=== PATIENT | female | born 1980 | race Caucasian/White ===

== ENCOUNTER 2024-10-08 14:22 | Outpatient (CLI) | payer OTHER, SELFPAY ==
[2024-10-08 14:54] LABS: Hematocrit 42.0 % (37.0-47.0); Hemoglobin 13.7 g/dL (12.0-15.0); Mean Corpuscular HGB Conc 32.6 g/dl (32-36); Mean Corpuscular Hemoglobin 30.1 pg (26-34); Mean Corpuscular Volume 92.3 fl (80-100); Platelet Count Result 277 k/mm3 (150-375); Red Blood Count 4.55 M/mm3 (4.2-5.4); White Blood Count 8.0 K/mm3 (4.5-10.0)
[2024-10-08 15:11] LABS: Albumin Level 4.1 g/dL (3.5-5.1); Anion Gap 7 mmol/L (4-12); Blood Urea Nitrogen 10 mg/dL (7-17); Calcium 8.9 mg/dL (8.4-10.2); Carbon Dioxide 27 mmol/L (22-30); Chloride 105 mmol/L (98-107); Estimated Glomerular Filt Rate > 60; Glucose 81 mg/dL (65-110); Potassium 4.4 mmol/L (3.4-5.0); Sodium 139 mmol/L (137-145)
[2024-10-08 15:19] LABS: Prealbumin 22.5 mg/dL (17.6-36.0)
[2024-10-08 15:24] LABS: Iron 83 ug/dL (37-170)
[2024-10-08 21:58] LABS: Hemoglobin A1C 5.0 % (<5.7)
== END 2024-10-08 14:23 | disposition home or self-care (01) ==
LOC: ANHLAB 14:30
PROVIDERS: PCP Family Medicine; Visit Provider Surgery Plastic and Reconstructive Surgery
DX: R63.4 Abnormal weight loss (principal)
CPT/HCPCS: 36415; 80048; 82040; 83036; 83540; 84134; 85027

== ENCOUNTER 2024-10-15 00:06 | Day surgery (SDC) | payer OTHER, SELFPAY ==
[2024-10-09 09:46] VITALS: BMI 30.2
--- NOTE | 2024-10-09 09:54 | PC.NURSE ---
Report to the Outpatient Waiting Room, entrance under the green pavilion located off [facility], at time _0930_ on date _[id number]_. Planned Procedure Time: _1130_.? Time changes happen often and if your time is changed the preop area will call you the afternoon before. - You and your visitor will be asked to self-screen and do not enter if you have any COVID symptoms. Please call surgeon if you need to reschedule. - A mask is optional within the hospital at this time. Patients may have clear liquids (water, carbonated beverages, clear teas, apple juice) until 3 hours prior to surgery with a maximum of 20 ounces. - No food from midnight until time of surgery and no smoking, or chewing tobacco (or any form of nicotine). No chewing gum, candy or mints. Take only the following medications with a SIP of water on the morning of surgery: ___Levothyroxine____ DO NOT STOP ANY OF YOUR OTHER PRESCRIPTION MEDICATIONS PRIOR TO SURGERY EXCEPT THE FOLLOWING Hold all vitamins and supplements for 3 days per anesthesiologist. Medications to discontinue per physician Date to take last dose Please no make-up, nail kittitian, hairspray, perfume, deodorant, or body powder the day of surgery.? No jewelry (including any body piercings) or valuables the day of surgery, leave them at home.? Please take a shower or bath the night before, or the morning of, surgery with an antibacterial soap.? Wear comfortable, loose fitting clothing.? - Jewelry must be removed prior to entering the operating room.? Rings and piercings that are not removed may be cut off. - The hospital will not accept responsibility for valuables.? - Please leave all valuables, including medications, at home the day of surgery. If you are going home after surgery, a licensed six horse hitch driver must drive you home.? - NO public transportation without another adult if you receive anesthesia. - We recommend that an adult stay with you for 24 hours following discharge. - We also recommend that you do not drive, make important decision, drink alcoholic beverages, or take any drugs that were not prescribed by your health care provider for at least 24 hours after your discharge time. Follow any additional instructions given to you from your surgeon. Telephone instructions given to __Mirella___and asked if any additional questions and then verbalized understanding. Patient advised to call surgeon office or pre surgery nurse liaison [phone] if any additional questions.
[2024-10-15] VITALS (10 sets, daily range): BP systolic 95–125; BP diastolic 65–82; PULSE 57–72; RESP 12–18; TEMP 36.8–37.4; O2SAT 95–100; BMI 30.3
--- OUTSIDE RECORDS SUMMARY | 2024-10-15 00:09 | XMS_ITS | Encounter Summary ---
Author Organization [facility] Facility Care Team Providers Care Artistic Director Name Role Phone Jesus Thornton MD Primary Care Provider [phone] Jesus Thornton MD Primary Care Provider [phone] Henna Gomez MD Unavailable Glenn Bailey MD Unavailable [phone] Shar Emerson MD Unavailable [phone] Encounter Details Date Type Department Care Team (Latest Contact Info) Description 12/23/2015 Orders Only [facility] ProviderDebbie MD [address] [place] [id number] Social History Tobacco Use Types Packs/Day Years Used Date Smoking Tobacco: Never Assessed Alcohol Use Standard Drinks/Week Comments No 0 (1 standard drink = 0.6 oz pur e alcohol) Comments Unknown Sex and Gender Information Value Date Recorded Sex Assigned at Not on file 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 us Historical Provider Final Res ult documented in this encounter Visit Diagnoses Not on filedocumented in this encounter Care Teams Artistic Director Relationship Specialty Start Date End Date Jesus Thornton MD [address] [facility] [address] [place] [address] PCP - General 06/22/16 Jesus Thornton MD [address] [facility] [address] [place] [address] PCP - General 01/17/15 06/21/16 [place] [address] [facility] [address] [place] [address] Rheumatology 12/25/16 06/03/23 Glenn Bailey MD [address] [place] [address] Consulting Physician Rheumatology 08/28/23 Shar Emerson MD [address] [place] [address] Referring Physician Plastic Surgery 10/07/24 documented as of this encounter
--- OUTSIDE RECORDS SUMMARY | 2024-10-15 00:09 | XMS_ITS | Encounter Summary ---
Author Organization [facility] Address [address] [place] [address] Care Team Providers Care Youth Accommodation Support Worker Name Role Phone Jesus Thornton MD Primary Care Provider [phone] Glenn Bailey MD Unavailable [phone] [facility] Unavailable [phone] Encounter Details Date Type Department Care Team (Late st Contact Info) Description 01/03/2024 Orders Only [facility] Information Management [address] [place] [address] Marylin Martines CNM [address] [place] [id number] Social History Tobacco Use Types Packs/Day Years Used Date Smoking Tobacco: Former Cigarettes Smokeless Tobacco: Never Alcohol Use Standard Drinks/Week Comments Yes 0 (1 standard drink = 0.6 oz pur e alcohol) Comments No Sex and Gender Information Value Date Recorded Sex Assigned at Not on file 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 Gender Identity Not on file Sexual Orientation Not on file documented as of this encounter Plan of Treatment Not on file documented as of this encounter Procedures Procedure Name Priority Date/Time Associated Diagnosis Comments SCAN - RADIOLOGY/IMAGING 01/03/2024 documented in this encounter Results * SCAN - RADIOLOGY/IMAGING (01/03/2024) Anatomical Region Laterality Modality Other us Marylin Martines CNM Final Result documented in this encounter Visit Diagnoses Not on filedocumented in this encounter Care Teams Youth Accommodation Support Worker Relationship Specialty Start Date End Date Jesus Thornton MD [address] [facility] [address] [place] [address] PCP - General 06/22/16 Glenn Bailey MD [address] [place] [address] Consulting Physician Rheumatology 08/28/23 Shar Emerson MD [address] [place] [address] Referring Physician Plastic Surgery 10/07/24 documented as of this encounter
--- OUTSIDE RECORDS SUMMARY | 2024-10-15 00:09 | XMS_ITS | Referral Summary ---
Author Organization [facility] [address] Address [address] [place] [phone] Phone Care Team Providers Care Records Associate Name Role Phone Jesus Thornton MD Primary Care Provider [phone] Glenn Bailey MD Unavailable [phone] Unavailable [phone] Encounters Date Type Department Care Team Description 10/07/2024 Telephone [facility] [address] [place] [phone] Daniel Franco 09/24/2024 Results Follow-Up [facility] [address] [place] [phone] Rochelle Francis PA Erythrocyte sedimentation rate, CBC with auto differential, CRP (acute phase), Comprehensive metabolic panel 09/23/2024 Telephone [facility] [address] [place] [phone] Rochelle Francis PA 09/23/2024 1:00 PM CDT Office Visit [facility] [address] [place] [phone] Rochelle Francis PA Psoriatic arthritis (HCC) (Primary Dx); Encounter for long-term (current) use of medications from Last 3 Months Allergies Active Allergy Reactions Criticality Noted Date Comments House Dust Mold Pollen Extracts Unknown 09/15/2018 Medications levothyroxine (SYNTHROID) 50 mcg tablet take 1 tablet (50MCG) by oral route every day 0 2 Active loratadine (CLARITIN) 10 mg tablet take 1 tablet (10MG) by oral route every day 0 2 Active montelukast (SINGULAIR) 10 mg tablet take 1 tablet by oral route every day in the evening 0 0 5 Active cycloSPORINE (RESTASIS) 0.05 % ophthalmic emulsion instill 1 drop by ophthalmic route every 12 hours into affected eye(s) 0 each 0 6 Active albuterol HFA (PROVENTIL HFA,VENTOLIN HFA,PROAIR HFA) 90 mcg/actuation inhaler INHALE 2 PUFFS EVERY 4-6 HOURS IF NEEDED 1 Active sulfaSALAzine EN (AZULFIDINE EN) 500 mg EC tablet Take 3 tablets (1,500 mg total) by mouth 2 (two) times a day 540 tablet 1 4 Active adalimumab-adb m 40 mg/0.4 mL pen injector kit GIVE ONE INJECTION (40MG) SUBCUTANEOUSLY ONCE EVERY 2 WEEKS. 2 kit 2 5 Active ibuprofen (ADVIL,MOTRIN) 600 mg tablet Take 1 tablet (600 mg total) by mouth 3 (three) times a day as needed for pain 60 tablet 5 025 Active Active Problems Problem Noted Date Diagnosed Date Encounter for long-term (current) use of medicat ions 09/12/2023 Assessment & Plan (09/23/2024 8:21 AM CDT): Quant gold neg 05/2023 Hep b and c neg 08/2023 Hand US 08/2023 Assessment & Plan (05/22/2024 8:38 AM PROVIDER SERVICE REPRESENTATIVE): Quant gold neg 05/2023 Hep b and c neg 08/2023 Hand US 08/2023 Assessment & Plan (01/17/2024 8:27 AM CDT): Quant gold neg 05/2023 Hep b and c neg 08/2023 Hand US 08/2023 Assessment & Plan (09/12/2023 8:03 AM CDT): Quant gold neg 05/2023 Hep b and c neg 08/2023 Hand US 08/2023 Arthralgia 08/28/2023 Assessment & Plan (09/12/2023 7:58 AM CDT): Long hx of PsA but also has hx of + RF. Her symptoms appear more compatible with her previous PsA diagnosis. She is currently on humira but takes it q3 weeks instead of 2 weeks, recommended that she takes her humria sq q 2 weeks since she has a low mod cdai today. Also takes ssz 1000mg bid in summer and 1500mg bid in winter, we can continue this. Check labs (avise panel done 09/2022 only had a + RF) but no need to repeat avise panel. Check hand US and xrays. Seen with Dr. Bailey. 1 h spent with pt today between Dr. Bailey and myself. F/u in 2 weeks to re-evaluate. Assessment & Plan (08/28/2023 12:55 PM CDT): Long hx of PsA but also has hx of + RF. Her symptoms appear more compatible with her previous PsA diagnosis. She is currently on humira but takes it q3 weeks instead of 2 weeks, recommended that she takes her humria sq q 2 weeks since she has a low mod cdai today. Also takes ssz 1000mg bid in summer and 1500mg bid in winter, we can continue this. Check labs (avise panel done 09/2022 only had a + RF) but no need to repeat avise panel. Check hand US and xrays. Seen with Dr. Bailey. 1 h spent with pt today between Dr. Bailey and myself. F/u in 2 weeks to re-evaluate. Dorsalgia 08/28/2023 Assessment & Plan (08/28/2023 12:55 PM CDT): Check lumbar and si joint xrays. COVID-19 04/03/2021 Psoriatic arthritis 03/29/2017 Overview (09/03/2023): rf 14+ spouse had vasectomy scalp psoriasis cma14 and quant gold neg 03/30/16 US left hand/wrist 09/03/23: Effusion of the 4th extensor compartment Mild synovial thickening of the dorsal wrist with single power Doppler signal Moderate synovial thickening of the 3rd PIPJ Moderate spurring of the 1st CMC joint Findings are compared to previous exam dated 06/07/17 showing continued extensor tendon effusion. Stable synovial thickening with improvement in power Doppler and effusion of the dorsal wrist. Increased synovial thickening of the 3rd PIPJ. Assessment & Plan (09/23/2024 3:03 PM CDT): Images from the original note were not included. Low CDAI. Is now on biosimilar adalimumab and it is working well but her insurance told pt that they will cover brand name Humira only. Will change to humira. She is tolerating ssz 3 tabs bid without any gi upset although she occ forgets to take it or does not want to take it, states she is tired of taking so many meds. Will continue both meds. Check labs today. She takes occ ibuprofen, has a rx that needs refill from another provider, is requesting we take over this. Only takes it 1-2 times a week at most. No gi problems when she takes it, will refill it. Long hx of PsA but also has hx of + RF. Her symptoms appear more compatible with her previous PsA diagnosis although she has a + RF so the possibility of also having RA should still be considered. With her subtle bilat si joint narrowing and psoriasis will continue her diagnosis of psoriatic arthritis. Her flu vaccine is utd. Advised her to get shingrix, prevnar and pneumovax and covid vaccines. Labs and imaging: Avise panel 08/2022----RF 38 Hep B and C neg Crp 4.5/ESR 19 CBC/CMP wnl Quant godl neg 05/2023 Lt Hand US 08/2023: Assessment & Plan (05/22/2024 2:11 PM PROVIDER SERVICE REPRESENTATIVE): Images from the original note were not included. Low CDAI. Is now on biosimilar adalimumab and it is working well. She is tolerating ssz 3 tabs bid without any gi upset. Will continue both meds. Check labs today Long hx of PsA but also has hx of + RF. Her symptoms appear more compatible with her previous PsA diagnosis although she has a + RF so the possibility of also having RA should still be considered. With her subtle bilat si joint narrowing and psoriasis will continue her diagnosis of psoriatic arthritis. Her flu vaccine is utd. Advised her to get shingrix, prevnar and pneumovax and covid vaccines. Labs and imaging: Avise panel 08/2022----RF 38 Hep B and C neg Crp 4.5/ESR 19 CBC/CMP wnl Quant godl neg 05/2023 Lt Hand US 08/2023: Assessment & Plan (01/17/2024 1:37 PM CDT): Images from the original note were not included. Low-mod CDAI but she is overdue for her humira, she ran out and changed insurance and now we have to get this approved first. Gave pt a sample of humira and will start approval. Refilled her ssz 3 tabs bid. Check labs today Long hx of PsA but also has hx of + RF. Her symptoms appear more compatible with her previous PsA diagnosis although she has a + RF so the possibility of also having RA should still be considered. With her subtle bilat si joint narrowing and psoriasis will continue her diagnosis of psoriatic arthritis. Her flu vaccine is utd. Advised her to get shingrix, prevnar and pneumovax and covid vaccines. Labs and imaging: Avise panel 08/2022----RF 38 Hep B and C neg Crp 4.5/ESR 19 CBC/CMP wnl Quant godl neg 05/2023 Lt Hand US 08/2023: Assessment & Plan (09/12/2023 12:03 PM CDT): Images from the original note were not included. Low CDAI. Long hx of PsA but also has hx of + RF. Her symptoms appear more compatible with her previous PsA diagnosis although she has a + RF so the possibility of also having RA should still be considered. With her subtle bilat si joint narrowing and psoriasis will continue her diagnosis of psoriatic arthritis. Her hand US did not show a lot of active inflammation but she was strongly advised to take her humira q 2 weeks to prevent future joint damage.. She can continue ssz 1000mg bid in summer and 1500mg bid in winter since she feels better in the summer. Seen with Dr. Bailey. 1 h spent with pt today between Dr. Bailey and myself. Labs and imaging: Avise panel 08/2022----RF 38 Hep B and C neg Crp 4.5/ESR 19 CBC/CMP wnl Quant godl neg 05/2023 Lt Hand US 08/2023: Assessment & Plan (08/28/2023 12:55 PM CDT): Long hx of PsA but also has hx of + RF. Her symptoms appear more compatible with her previous PsA diagnosis. She is currently on humira but takes it q3 weeks instead of 2 weeks, recommended that she takes her humria sq q 2 weeks since she has a low mod cdai today. Also takes ssz 1000mg bid in summer and 1500mg bid in winter, we can continue this. Check labs (avise panel done 09/2022 only had a + RF) but no need to repeat avise panel. Check hand US and xrays. Seen with Dr. Bailey. 1 h spent with pt today between Dr. Bailey and myself. F/u in 2 weeks to re-evaluat Assessment & Plan (11/01/2017 11:29 AM CDT): Patient disease activity is low on ssz and humira. She had a flare in August. Reports 1/10 joint pain today and minimal AM stiffness. Patient is to continue current regimen. Gave her samples of pennsaid, Vivlodex, and Duexis today. She will try them and let us know if these help w/ her thumb pain and occasional flares. She was instructed not to take both Vivlodex and Duexis Will check routine labs today. Follow up in 3 mo, sooner if needed Assessment & Plan (07/26/2017 12:16 PM CDT): Patient disease activity is low on 2 tabs BID SSZ and humira every other week. She reports her joints feel good and she has minimal pain and stiffness. Minimal clinical evidence of swelling on exam. Her hand/wrist us in 05/2017 which showed mild synovial thickening/effusion w/ PD. There is worsening doppler act compared to her previous us in 04/2016. Patient is to continue current regimen. Her clinical exam is not consistent w/ the findings on her us. Her current 21 day dietary restriction may be playing a part in helping manage her disease. We will hold off on making any changes at this point in time. Will check routine labs today. Follow up in 3 mo, sooner if needed. Pt seen w/ Dr. Gomez Assessment & Plan (03/29/2017 9:28 AM PROVIDER SERVICE REPRESENTATIVE): Patient on Humira and SSZ. Patient disease activity is low. Patient is to continue Humira and SSZ. Ok to decrease SSZ to 2 tabs BID as she is low disease activity. Will repeat u/s prior to next Ov. If she continues to have minimal findings on U/S will have her stop the SSZ. Will check routine labs today (checking lupus follow up panel as she did have a positive anti-C1q). Encounter for gynecological examination without abnormal finding 03/29/2017 Overview (10/31/2017): 1) Hep b/c NR 04/10 2) Quant gold negative 04/11 Assessment & Plan (10/31/2017 8:24 PM CDT): Will continue to monitor w/ routine labs 1) Hep b/c NR 04/10 2) Quant gold negative 04/11 Assessment & Plan (07/26/2017 12:17 PM CDT): Will continue to monitor the patient with routine labs. Assessment & Plan (03/29/2017 9:28 AM PROVIDER SERVICE REPRESENTATIVE): Will continue to monitor the patient with routine labs. Rash 12/21/2016 Assessment & Plan (03/29/2017 9:32 AM PROVIDER SERVICE REPRESENTATIVE): Malar blushing. AVISE testing with anti-C1q. Suspicion for lupus nephritis is low but will check urine for protein/creatinine ratio. Psoriasis 09/07/2016 Assessment & Plan (07/26/2017 12:17 PM CDT): Stable. Asthma 01/03/2015 Overview (06/28/2016): Asthma Urinary tract infection 08/19/2014 Bronchial asthma 02/10/2014 History of gestational diabetes mellitus (GDM) 1 04/11/2013 Obesity affecting , antepartum 02/10/20 14 Hyperthyroidism 02/09/2014 Leiomyoma of uterus, unspecified 02/09/2014 High-risk 11/14/2011 Resolved Problems Problem Noted Date Diagnosed Date Resolved Date Encounter for long-term (cur rent) use of other medications 09/07/2016 03/29/2017 Social History Tobacco Use Types Packs/Day Years Used Date Smoking Tobacco: Former Cigarettes Smokeless Tobacco: Never Tobacco Cessation:Counseling Given: Not Answered Alcohol Use Standard Drinks/Week Comments Yes 0 (1 standard drink = 0.6 oz pur e alcohol) Comments No Sex and Gender Information Value Date Recorded Sex Assigned at Not on file Legal Sex Female 1:45 AM PROVIDER SERVICE REPRESENTATIVE Gender Identity Not on file Sexual Orientation Not on file Last Filed Vital Signs Vital Sign Reading Time Taken Comments Blood Pressure 110/66 09/23/2024 1:03 PM CDT Pulse 71 09/23/2024 1:03 PM CDT Temperature 37.1 C (98.7 F) 04/03/2021 2:08 PM PROVIDER SERVICE REPRESENTATIVE Respiratory Rate 20 04/03/2021 2:08 PM PROVIDER SERVICE REPRESENTATIVE Oxygen Saturation 98% 09/23/2024 1:03 PM CDT Inhaled Oxygen Concentration - - Weight 78.9 kg (174 lb) 09/23/2024 1:03 PM CDT Height 160 cm (5' 3) 09/23/2024 1:03 PM CDT Body Mass Index 30.82 09/23/2024 1:03 PM CDT Plan of Treatment Not on file Procedures Procedure Name Priority Date/Time Associated Diagnosis Comments COMPREHENSIVE METABOLIC PANEL Routine 09/23/2024 1:41 PM CDT Psoriatic arthritis (HCC) Encounter for long-term (current) use of medications CRP (ACUTE PHASE) Routine 09/23/2024 1:4 1 PM CDT Psoriatic arthritis (HCC) Encounter for long-term (current) use of medications CBC WITH AUTO DIFFERENTIAL Routine 09/23/2024 1:41 PM CDT Psoriatic arthritis (HCC) Encounter for long-term (current) use of medications ERYTHROCYTE SEDIMENTATION RATE Routine 09/23/2024 1:41 PM CDT Psoriatic arthritis (HCC) Encounter for long-term (current) use of medications PAP AND HIGH RISK HPV, REFLEX TO GENOTYPING Routine 08/30/2021 9:11 AM CDT Well woman exam with routine gynecological exam SCREENING MAMMOGRAM BILATERAL W MISAEL Routine 12/24/2017 8:32 AM CDT from Last 3 Months or Most Recently Relevant to Health Maintenance Results * (ABNORMAL) CBC with auto differential (09/23/2024 1:41 PM CDT) WBC 6.9 3.8 - 10.8 Thousand/u L [facility] RBC, POC 4.49 3.80 - 5.10 Million/uL [facility] Hgb 13.4 11.7 - 15.5 g/dL [facility] Hct 42.4 35.0 - 45.0 % [facility] MCV 94.4 80.0 - 100.0 fL [facility] MCH 29.8 27.0 - 33.0 pg [facility] MCHC 31.6(L) 32.0 - 36.0 g/dL [facility] Comment: For adults, a slight decrease in the calculated MCHC value (in the range of 30 to 32 g/dL) is most likely not clinically significant; however, it should be interpreted with caution in correlation with other red cell parameters and the patient's clinical condition. Rdw 13.1 11.0 - 15.0 % [facility] Platelets 240 140 - 400 Thousand/u L [facility] MPV 10.1 7.5 - 12.5 fL [facility] Neutrophils, abs 3,816 1,500 - 7,800 cells/uL [facility] Lymphocytes, abs 2,415 850 - 3,900 cells/uL [facility] Monocyte abs 559 200 - 950 cells/uL [facility] Eosinophils, abs 83 15 - 500 cells/uL [facility] Basophils, abs 28 0 - 200 cells/uL [facility] Neutrophils 55.3 % [facility] Lymphocyte pct 35.0 % [facility] Monocytes 8.1 % [facility] Eosinophils 1.2 % [facility] Basophils 0.4 % [facility] Blood 09/23/2024 1:41 PM CDT 09/23/2024 1:42 PM CDT Rochelle AGUILERA LAB BLOOD ORDERAB LES Final Result Performing Organization Address [facility] Co de Phone Number [facility] [address] [place] [address] * Erythrocyte sedimentation rate (09/23/2024 1:41 PM CDT) Pathologist [facility] Erythrocyte sedimentation rate 6 < OR = 20 mm/h [facility] Blood 09/23/2024 1:41 PM CDT 09/23/2024 1:42 PM CDT Rochelle AGUILERA LAB BLOOD ORDERAB LES Final Result Performing Organization Address [facility] de Phone Number [facility] [address] [place] [address] * CRP (acute phase) (09/23/2024 1:41 PM CDT) C-RP <3.0 <8.0 mg/L [facility] Blood 09/23/2024 1:41 PM CDT 09/23/2024 1:42 PM CDT Rochelle AGUILERA LAB BLOOD ORDERAB LES Final Result Performing Organization Address [facility] Co de Phone Number [facility] [address] [place] [address] * Comprehensive metabolic panel (09/23/2024 1:41 PM CDT) Glucose 81 65 - 99 mg/dL [facility] Comment: Fasting reference interval BUN 14 7 - 25 mg/dL [facility] Creatinine 0.66 0.50 - 0.99 mg/dL [facility] eGFR 112 > OR = 60 mL/min/1.7 3m2 [facility] BUN/creat ratio SEE NOTE: 6 - 22 (calc) [facility] Comment: Not Reported: BUN and Creatinine are within reference range. Sodium 139 135 - 146 mmol/L [facility] Potassium, pl 4.2 3.5 - 5.3 mmol/L [facility] Chloride 102 98 - 110 mmol/L [facility] CO2 28 20 - 32 mmol/L [facility] Calcium 9.3 8.6 - 10.2 mg/dL [facility] Protein, sr 7.2 6.1 - 8.1 g/dL [facility] Albumin 4.3 3.6 - 5.1 g/dL [facility] GLOBULIN 2.9 1.9 - 3.7 g/dL (calc) [facility] Alb/glob ratio 1.5 1.0 - 2.5 (calc) [facility] Bilirubin, total 1.0 0.2 - 1.2 mg/dL [facility] Alk phos 46 31 - 125 U/L [facility] AST 13 10 - 30 U/L [facility] ALT (SGPT) 9 6 - 29 U/L [facility] Blood 09/23/2024 1:41 PM CDT 09/23/2024 1:42 PM CDT us Rochelle AGUILERA LAB BLOOD ORDERAB LES Final Result [facility] [address] [place] [address] * Pap and High Risk HPV, reflex to Genotyping (08/30/2021 9:11 AM CDT) Thin prep (Pap test) 08/30/2021 9:11 AM CDT 09/01/2021 9:11 AM CDT Narrative PATHOLOGY [facility] - 09/05/2021 10:41 AM CDT Department of Pathology [address] [place] [address] Final Report with Addendum Note to Patients: This report may contain a detailed description of human tissue sent by a health care provider to the laboratory for pathologic evaluation. The content of this report is essential for diagnosis and may provide important critical findings. This information may be unfamiliar to patients to review without a medical professional present. It is advised that the patient review this report in the presence of a health care provider who can answer questions and explain the details. Patient Name: GARRY BOUDRAEUX Address: [address] [place] [address] Gender: F : 1980 (Age: 40) Service: Laboratory Location: [facility] #: [id number] Patient Type: [facility] SPECIMEN Taken: 08/30/2021 Received: 09/01/2021 Accessioned:: 09/04/2021 Reported: 09/05/2021 Physician(s): Pily Ingram [facility] Diagnosis: Source of Specimen: SCREENING THIN PREP IMAGED PAP w/ HPV Specimen Adequacy: - Satisfactory for evaluation; endocervical/transformation zone component present General Category: - Negative for intraepithelial lesion or malignancy MARCIN Puente(ASCP) Report Electronically Reviewed and Signed Out By MARCIN Puente(ASCP) 09/05/2021 10:41:54Addenda: HPV Test Interpretation NEGATIVE for types 16, 18, 31, 33, 35, 39, 45, 51, 52, 56, 58, 59, 66 and 68. Test performed utilizing Gen-Probe Aptima assay. MARCIN Mackenzie(ASCP)Report Electronically Reviewed and Signed Out By MARCIN Mackenzie(ASCP) 09/04/2021 13:47:47 Specimen(s) Received: A: SCREENING THIN PREP IMAGED PAP w/ HPV Clinical History: Last Menstrual Period: 08/05/21 The Pap test is a screening test used to aid in the detection of cervical cancer and its precursors. It should not be the sole means by which malignant and premalignant lesions are diagnosed. Both false negative and false positive results may occur. It also has poor sensitivity for the detection of endometrial lesions and should not be used to evaluate suspected endometrial abnormalities. For these reasons it is most important to obtain Pap tests at regular intervals. The performance characteristics of some immunohistochemical stains, fluorescence in-situ hybridization tests and immunophenotyping by flow cytometry cited in this report (if any) were determined by the Surgical Pathology Department at as part of an ongoing quality associate program and in compliance with federally mandated regulations drawn from the Clinical Laboratory Improvement Act of 1988 (CLIA '88). Some of these tests rely on the use of analyte specific reagents and are subject to specific labeling requirements by the US Food and Drug Administration. Such diagnostic tests may only be performed in a facility that is certified by the Department of Health and Human Services as a high complexity laboratory under CLIA '88. The FDA has determined that such clearance or approval is not necessary. This test is used for clinical purposes. It should not be regarded as investigational or for research. Nevertheless, federal rules concerning the medical use of analyte specific reagents require that the following disclaimer be attached to the report: This test was developed and its performance characteristics determined by the Surgical Pathology Department [facility]. It has not been cleared or approved by the U. S. Food and Drug Administration. Pily Ingram [facility] LAB CYTOLOGY ORDERABLES Final Result PATHOLOGY [facility] from Last 3 Months or Most Recently Relevant to [place] [address] [facility] [place] [employer] [facility] Care Teams Records Associate Relationship Specialty Start Date End Date Jesus Thornton MD [address] [facility] [address] [place] [address] PCP - General 06/22/16 Glenn Bailey MD [address] [place] [address] Consulting Physician Rheumatology 08/28/23 Shar Emerson MD [address] [place] [address] Referring Physician Plastic Surgery 10/07/24
--- OUTSIDE RECORDS SUMMARY | 2024-10-15 00:09 | XMS_ITS | Data Portability ---
Author Organization [facility] Address [address] [place] [address] Assessment No assessment recorded. Plan of Treatment Reminders Order Date Submit Date Provider Last Modified By Organization Details Last Modified Time Details Appointments PRODUCTION CONTROL EXPERT SONO 15 2024 11:00A M [facility] Not available Not available Not available PRODUCTION CONTROL EXPERT EST 2024 11:15A M Corrine Cervantes CNM Not available Not available Not available Lab None record ed. Referral None record ed. Procedures None record ed. Surgeries None record ed. Imaging None record ed. Medication Orders None record ed. Patient TargetsNo targets recorded. Patient InstructionsNo instructions recorded. Reason for Referral None Reported. Results Created Date Observation Date Name Description Value Unit Range Abnormal Flag Note LastModifiedBy Organization Detail LastModifiedTime 09/23/1909/22/2024 MAMMO , scree kwaku, tomos ynthe sis, bilat eral This is a summar y report . The comple te report is availa ble in the patien t's medica l record . If you cannot access the medica l record , please contac t the sendin g organi valentin for a detail ed fax or copy. [facility] [address] [address] Examin ation: Screen ing bilate ral mammog ethan Exam Date: 09/23/19 11:03 AM Access ion: [id number] Clinic al histor y: Routin e screen ing. Compar amber: 2023, 2022 Techni que: Digita l screen ing mammog minh of both breast s was perfor med. Breast tomosy nthesi s acquis itions were obtain ed and review ed. This study was read with the assist ance of a SincroPool er-aid ed detect ion system . Tissue densit y: There are scatte red areas of fibrog landul ar densit y. Findin gs: No suspic ious masses , malign ant appear ing calcif icatio ns, skin thicke kwaku or other abnorm alitie s are presen t. No signif icant change from the prior exam. IMPRES DUSTIN: No suspic ious mammog raphic findin gs. Recomm endati on: 1. Routin e Screen ing, Bilate ral Assess ment: ACR BI-RAD S 1 - NEGATI VE Ordere d By: HEVER RAMÍREZ Electr onical ly Signed By: David Rollins MD on 09/23/19 3:06 PM Interp reted By: David Rollins MD, 09/23/19 3:01 PM [email or web address], [address], 09/23/2024 21:42:33 Result Notes None recorded. Procedures Surgical History Date Name Laterality Status Provider Name and Address Organization Details Recorded Time Most Recent Mammogram completed Thalia Ramírez MD [address] [place], [address], [facility] Tao Sales IV 09/23/2024 21:42:26 Imaging Results None recorded. Procedure Notes None recorded. Medical Equipment None Reported. Allergies Allergen ID Allergen Name Allergen Category Reaction Reaction Severity Criticality Documentation Date Start Date Code Code System Note Provider Name and Address Organization Details Recorded Time 986156 house dust allergeni c extract environme nt,medica tion Not available Not available Not available 10/13/2024 43536 9 RxNorm Shanna Homar [place] CL[place] IV 12:33:50 879420 mold extract environme nt Not available Not available Not available 10/13/2024 02582 8 RxNorm Shanna Hom[place] IV 12:33:53 Medications Name Sig Start Date Stop Date Status Note LastModified by Organization Details LastModified Time sulfasalazi ne 500 mg tablet Take 3 tablets twice a day by oral route. active Not Available Not Available No t Available fluconazole 150 mg tablet TAKE ONE TABLET BY MOUTH FOR one DOSE now. REPEAT in 3 DAYS. 10/13 completed Not Available Not Available Not Available prednisone 20 mg tablet TAKE TWO TABLETS BY MOUTH EVERY DAY FOR 5 DAYS, THEN TAKE ONE TABLET EVERY DAY FOR 5 DAYS 10/13 completed Not Available Not Available Not Available levothyroxi ne 50 mcg tablet TAKE ONE TABLET BY MOUTH DAILY active Not Available Not Available No t Available montelukast 10 mg tablet TAKE ONE TABLET BY MOUTH DAILY active Not Available Not Available No t Available ibuprofen 600 mg tablet TAKE ONE TABLET BY MOUTH THREE TIMES DAILY NEEDED FOR PAIN active Not Available Not Available No t Available albuterol sulfate HFA 90 mcg/actuati on aerosol inhaler inhale 2 puffs BY MOUTH EVERY 4 TO 6 HOURS NEEDED active Not Available Not Available No t Available amoxicillin 875 mg-potassiu m clavulanate 125 mg tablet TAKE ONE TABLET BY MOUTH EVERY TWELVE HOURS 10/13 completed Not Available Not Available Not Available Humira 40 mg/0.8 mL subcutaneou s syringe kit Inject 0.8 mL every 2 weeks by subcutane ous route. active Not Available Not Available No t Available Restasis 0.05 % eye drops in a dropperette INSTILL ONE DROP into THE affected eye EVERY TWELVE HOURS active Not Available Not Available No t Available Vitals Date Recorded Body height Body mass index (BMI) Body weight Systolic And Diastolic Provider Name and Address Organization Details Last Updated DateTime 10/13/2024 160.02 cm 30.3 kg/m2 82069.3 g 102/68 mm[Hg] Shanna Graf Sh[employer] Guardian IV 10/13/2024 12:40:09 Social History Question Answer Notes LastModified by Organizat ion Details LastModified Time Tobacco Smoking Status Former Smoker Shanna Graf chantel, [employer] IV 10/13/2024 12:33:43 If You Are , What Was Your Level Of Alcohol Consumption Prior To ? None [email or web address] Information not available 10/13/2024 Are You Blind Or Do You Have Difficulty Seeing? No Information not available 10/13/2024 Are You Deaf Or Do You Have Serious Difficulty Hearing? No [email or web address] Information not available 10/13/2024 What Type Of Diet Are You Following? REGULAR Information not available 10/13/2024 What Is The Highest Grade Or Level Of School You Have Completed Or The Highest Degree You Have Received? [id number] [email or web address] Information not available 10/13/2024 When Did You Quit Smoking? 11-15yearssi ncelastmagui ette [email or web address] Information not available 10/13/2024 How Many Children Do You Have? 2 [email or web address] Information not available 10/13/2024 Are There Any Occupational Health Risks Where You Work? No [email or web address] Information not available 10/13/2024 What Is Your Relationship Status? [email or web address] Information not available 10/13/2024 Are You Sexually Active? Yes [email or web address] Information not available 10/13/2024 At What Age Did You Start Smoking Tobacco? 21 [email or web address] Information not available 10/13/2024 How Much Tobacco Do You Smoke? No [email or web address] Information not available 10/13/2024 How Many Years Have You Smoked Tobacco? 10 [email or web address] Information not available 10/13/2024 Sex: Unknown Functional Status Question Answer Note LastModified by Organizat ion Details LastModified Time Do you use any illicit or recreational drugs? No Information not available 10/13/2024 Do you or have you ever used any other forms of tobacco or nicotine? No [email or web address] Information not available 10/13/2024 What is your level of alcohol consumption? None [email or web address] Information not available 10/13/2024 Are you currently employed? Yes [email or web address] Information not available 10/13/2024 What is your exercise level? Occasional [email or web address] Information not available 10/13/2024 Mental Status None recorded. Family History Nothing Reported Notes:none Medical History Condition Response Hypothyroidism Y Autoimmune disease Y Asthma Y Osteoporosis Y Gynecological History Statement/Question Response Date of Last Colonoscopy Flow Moderate Date of LMP 10/08/2024 Most Recent Bone Density Frequency of Cycle (Q days) 21-60 Duration of Flow (days) 4-9 Most Recent Mammogram 09/22/2024 Current Control Method Partner Vas ectomy Age at Menarche 12 Obstetrics History GPAL:G 2 P 2 0 0 2 Type Value Full Term 2 Living 2 Total 2 Past Encounters Encounter ID Performer Location Encounter Start Date Encounter Closed Date Diagnosis/Indication Diagnosis SNOMED-CT Code Diagnosis ICD10 Code Diagnosis Note [id number] Thalia Ramírez MD [facility] [address] [place] [address] 10/13/2024 12:14:58 10/13/2024 14:43:23 Menometrorrhagia 089375615 N92.1 Discussed cycle fluctuatio ns which may be typical of perimenopa use, both in timing and in flowAdvise d that a work up may be done to identify any physical factors such as fibroids and polyps, and hormone levels may be done but may not be as helpful as they fluctuate widely in perimenopa use.Advise d that perimenop is characteri zed by changing, fluctuatin g cycles that correlate with fluctuatio ns in hormone levels.Adv ised to schedule ultrasound and lab. She wishes to hold off on labs for now as she just had labs done with PCP and rheumatolo gist, wants to see the results of those.Advi sed that exam may be done when she is not bleeding, she is unsure of last pap but thinks had one last yr Health Concerns Section Related Observation LastModified by Organization Detai ls LastModified Time None Recorded Concern Status LastModified by Organization Details LastModified Time None Recorded Advance Directives Directive None Recorded Payers Insurance Date Sequence Insurance Name Policy Number Policy Silveira Covered Member ID Silveira Member ID Guarantor Name 10/13/2024 1 [facility] Mirella Boudreaux [id number] Mirella Boudreaux 10/13/2024 1 [employer] Mirella Boudreaux [id number] Mirella Boudreaux Notes Date Note Type Note Provider Name and Address Organization Details Recorded Time 10/13/2024 text/html Mirella is a 43yr old here today for an annual well visit, however, she is currently bleeding so wishes to defer pelvic exam. She does want to address her problem of irregular periods.She is experiencing irregular periods for some time now, and that is bothersome to her. She reports that some cycles she will bleed twice a month, others, she will skipThe bleeding generally lasts 4 days, with heavy flows and cramps.She does not feel that she has menopausal symptoms, but has maybe noted a hot flash once or twice.She tried to address this with another business director provider, but felt dismissed. She wonders if this is typical of perimenopause.She does state a hx of fibroids noted in a prior , but no recent ultrasound Thalia Ramírez MD [address] [place], [address], [facility] 10/13/2024 14:43:13 OBGyn Episode Ob Episode Information Episode Created Date Number of Fetuses Patient Bloodtype Patient rh Status Prepregnancy Weight lbs Domestic Partner Domestic Partner Phone Father Name Automobile Painter Status 10/14/19 25 1 CLOSED Fetus Data First Name Last Name Admitted to NICU Weight (g) Sex Living Outcome Pediatric Complications Fetus ID Race Codes Race Delivery Type 4422.52 2 F Full Term [id number] Jim Calculation Initial Jim Date Initial Exam Date Initial Exam Provider Initial Ultrasound Date Last Menstrual Period Date Ultra Sound Weeks Gestation 0 Eighteen To Twenty Week Jim Update Ultra Sound Date Fundal Height At Umbil Quickening Date Ultra Sound Latest Weeks Gestation Final Jim Confirmed By Final Jim Confirmed Date Final Jim Date Ultra Sound Latest Days Gestation 0 0 Menstrual History Last Menstrual Date Menses Monthly On Bcp Conception Prior Menses Frequency Hcg Plus Date Menarche Onset Age Delivery Information Delivery Date Delivery Type Labor Anesthesia Weeks Gestation Incision Type Labor Labor Length Hrs Delivered By Post Complications Tubal Sterilization Discharge Date Comments 5 41 Discharge Information Feeding Method Contraceptive Method Maternal HG B and HCT Levels Ob Episode Information Episode Created Date Number of Fetuses Patient Bloodtype Patient rh Status Prepregnancy Weight lbs Domestic Partner Domestic Partner Phone Father Name Automobile Painter Status 10/14/19 25 1 CLOSED Fetus Data First Name Last Name Admitted to NICU Weight (g) Sex Living Outcome Pediatric Complications Fetus ID Race Codes Race Delivery Type 3345.24 1 M Full Term [id number] Jim Calculation Initial Jim Date Initial Exam Date Initial Exam Provider Initial Ultrasound Date Last Menstrual Period Date Ultra Sound Weeks Gestation 0 Eighteen To Twenty Week Jim Update Ultra Sound Date Fundal Height At Umbil Quickening Date Ultra Sound Latest Weeks Gestation Final Jim Confirmed By Final Jim Confirmed Date Final Jim Date Ultra Sound Latest Days Gestation 0 0 Menstrual History Last Menstrual Date Menses Monthly On Bcp Conception Prior Menses Frequency Hcg Plus Date Menarche Onset Age Delivery Information Delivery Date Delivery Type Labor Anesthesia Weeks Gestation Incision Type Labor Labor Length Hrs Delivered By Post Complications Tubal Sterilization Discharge Date Comments 3 41 Discharge Information Feeding Method Contraceptive Method Maternal HG B and HCT Levels
--- OUTSIDE RECORDS SUMMARY | 2024-10-15 00:09 | XMS_ITS | Encounter Summary ---
Author Organization [facility] Address [address] [place] [address] Phone Care Team Providers Care Benefits Advisor Name Role Phone Jesus Thornton MD Primary Care Provider [phone] Glenn Bailey MD Unavailable [phone] [facility] Un[facility] [phone] Encounter Details Date Type Department Care Team (Late st Contact Info) Description 09/24/2024 Results Follow-Up [facility] [address] [place] [address] Rochelle Francis PA [address] [place] [address] Erythrocyte sedimentation rate, CBC with auto differential, CRP (acute phase), Comprehensive metabolic panel Social History Tobacco Use Types Packs/Day Years Used Date Smoking Tobacco: Former Cigarettes Smokeless Tobacco: Never Alcohol Use Standard Drinks/Week Comments Yes 0 (1 standard drink = 0.6 oz pur e alcohol) Comments No Sex and Gender Information Value Date Recorded Sex Assigned at Not on file Legal Sex Female 1:45 AM BOX OFFICE MANAGER Gender Identity Not on file Sexual Orientation Not on file documented as of this encounter Miscellaneous Notes * Result Encounter Note - Rochelle Francis PA - 09/24/2024 3:32 PM CDT Labs stable. Call patient with results. documented in this encounter Plan of Treatment Not on file documented as of this encounter Visit Diagnoses Not on filedocumented in this encounter Care Teams Benefits Advisor Relationship Specialty Start Date End Date Jesus Thornton MD [address] [place] [address] PCP - General 06/22/16 Glenn Bailey MD [address] [place] [address] Consulting Physician Rheumatology 08/28/23 Shar Emerson MD [address] [place] [address] Referring Physician Plastic Surgery 10/07/24 documented as of this encounter
--- OUTSIDE RECORDS SUMMARY | 2024-10-15 00:09 | XMS_ITS | Clinical Summary ---
Author Organization [facility] [address] Address [address] [place] [address] Phone Care Team Providers Care Order Desk Clerk Name Role Phone Jesus Thornton MD Primary Care Provider [phone] Glenn Bailey MD Unavailable [phone] [facility] Unavailable [phone] Allergies Active Allergy Reactions Criticality Noted Date [...] (two) times a day 540 tablet 1 10/25/202 4 Active adalimumab-adb m 40 mg/0.4 mL [...] 08/2023 Assessment & Plan (05/22/2024 8:38 AM RN TELEPHONE TRIAGE): Quant gold neg 05/2023 Hep b and [...] 08/2023: Assessment & Plan (05/22/2024 2:11 PM RN TELEPHONE TRIAGE): Images from the original note were not [...] Gomez Assessment & Plan (03/29/2017 9:28 AM RN TELEPHONE TRIAGE): Patient on Humira and SSZ. Patient disease [...] labs. Assessment & Plan (03/29/2017 9:28 AM RN TELEPHONE TRIAGE): Will continue to monitor the patient with routine labs. Rash 12/21/2016 Assessment & Plan (03/29/2017 9:32 AM RN TELEPHONE TRIAGE): Malar blushing. AVISE testing with anti-C1q. Suspicion [...] rent) use of other medications 09/07/2016 03/29/2017 Encounters Date Type Department Care Team Description 10/07/2024 Telephone [facility] [address] [place] [address] Daniel Franco 09/24/2024 Results Follow-Up [facility] [address] [place] [address] Rochelle Francis PA Erythrocyte sedimentation rate, CBC with auto differential, CRP (acute phase), Comprehensive metabolic panel 09/23/2024 1:00 PM CDT Office Visit [facility] [address] [place] [address] Rochelle Francis PA Psoriatic arthritis (HCC) (Primary Dx); Encounter for long-term (current) use of medications 09/23/2024 Telephone [facility] [address] [place] [address] Rochelle Francis PA from Last 3 Months Surgical History Surgery Date Site/Laterality Comments OTHER SURGICAL HISTORY trimalleolar sx Medical History Medical History Date Comments Hx Other Medical 03/2011 ankle fracture/ surgery Adiposity Obesity Hx Other Medical 2011 fibroids Hx Other Medical 2005 Hypothyroidism, primary Hypothyroidism Asthma Seasonal allergies Family History * Patient is adopted Medical History Relation Name Comments Other mutations Neg Hx ADOPTED Social History Tobacco Use Types Packs/Day Years Used Date Smoking Tobacco: Former Cigarettes Smokeless Tobacco: Never Tobacco Cessation:Counseling Given: Not Answered Alcohol Use Standard Drinks/Week Comments Yes 0 (1 standard drink = 0.6 oz pur e alcohol) Comments No Sex and Gender Information Value Date Recorded Sex Assigned at Not on file Legal Sex Female 1:45 AM RN TELEPHONE TRIAGE Gender Identity Not on file Sexual Orientation Not on file Obstetrics History Para Term AB IAB SAB Ectopic Multiple Livin g Live Births 2 2 2 0 0 0 0 0 0 2 2 Date Outcome GA Total Labor Labor/2nd/3rd Weight Sex Type Anes PTL Erica A1 A5 Name Clin 013 Term Vag-Sp ont 015 Term Vag-Sp ont Comments Age of menarche [age]y/o First live 31 y/o Last Filed Vital Signs Vital Sign Reading Time Taken Comments Blood Pressure 110/66 09/23/2024 1:03 PM CDT Pulse 71 09/23/2024 1:03 PM CDT Temperature 37.1 C (98.7 F) 04/03/2021 2:08 PM RN TELEPHONE TRIAGE Respiratory Rate 20 04/03/2021 2:08 PM RN TELEPHONE TRIAGE Oxygen Saturation 98% 09/23/2024 1:03 PM CDT Inhaled Oxygen Concentration - - Weight 78.9 kg (174 lb) 09/23/2024 1:03 PM CDT Height 160 cm (5' 3) 09/23/2024 1:03 PM CDT Body Mass Index 30.82 09/23/2024 1:03 PM CDT Plan of Treatment Health Maintenance Due Date Last Done Comments Depression Screening 1980 Hepatitis C Screening 1980 DTaP/Tdap/Td Vaccine (1 - Tdap) 10/29/1991 Varicella Vaccines (1 of 2 - 13+ 2-dose series) 1993 Pneumococcal vaccine <65 (1 of 2 - PCV) 10/29/1999 HPV Vaccines (1 - 3-dose SCD M series) 10/29/2007 Cervical Cancer Screening 08/30/2022 08/30/2021 Regular Well Visit/Exam 18-64 10/02/2024, 09/19/2022, 08/30/2021, Additional history exists Influenza Vaccine (#1) 2024 Breast Cancer Screening-Mammogram 09/22/2025 09/22/2024, 09/22/2024, 01/03/2024, Additional history exists Hepatitis B Screening Completed 08/28/2023 Procedures Procedure Name Priority Date/Time Associated Diagnosis [...] with auto differential (09/23/2024 1:41 PM CDT) Pathologist [facility] WBC 6.9 3.8 - 10.8 Thousand/u L [...] ORDERAB LES Final Result Performing Organization Address [facility] Co de Phone Number [facility] [address] [place] [address] * Erythrocyte sedimentation rate (09/23/2024 1:41 PM CDT) Pathologist [facility] Erythrocyte sedimentation rate 6 < OR = 20 mm/h [facility] Blood 09/23/2024 1:41 PM CDT 09/23/2024 1:42 PM CDT Rochelle AGUILERA LAB BLOOD ORDERAB LES Final Result Performing Organization Address [facility] de Phone Number [facility] [address] [place] [address] * CRP (acute phase) (09/23/2024 1:41 PM CDT) Pathologist [facility] C-RP <3.0 <8.0 mg/L [facility] Blood 09/23/2024 1:41 PM CDT 09/23/2024 1:42 PM CDT Rochelle Brigette AGUILERA LAB BLOOD ORDERAB LES Final Result Performing Organization Address [facility] Co de Phone Number [facility] [address] [place] [address] * Comprehensive metabolic panel (09/23/2024 1:41 PM [...] LAB BLOOD ORDERAB LES Final Result [facility] [address] [place] [address] * Pap and High Risk HPV, reflex to Genotyping (08/30/2021 9:11 AM CDT) Thin prep (Pap test) 08/30/2021 9:11 AM CDT 09/01/2021 9:11 AM CDT Narrative PATHOLOGY [facility] - 09/05/2021 10:41 AM CDT [facility] Department of Pathology [address] [place] [address] Final Report with Addendum Note to Patients: [...] and explain the details. Patient Name: GARRY BOUDREAUX Address: [address] [place] [address] Gender: F : 1980 (Age: 40) Service: Laboratory Location: [facility] #: [id number] Patient Type: [facility] SPECIMEN Taken: 08/30/2021 Received: 09/01/2021 Accessioned:: 09/04/2021 Reported: 09/05/2021 Physician(s): Pily Ingram [facility] Diagnosis: Source of Specimen: SCREENING THIN PREP IMAGED PAP w/ HPV Specimen Adequacy: - Satisfactory for evaluation; endocervical/transformation zone component present General Category: - Negative for intraepithelial lesion or malignancy MARCIN Puente(ASCP) Report Electronically Reviewed and Signed Out By ANH PuenteASC) 09/05/2021 10:41:54Addenda: HPV Test Interpretation NEGATIVE for types 16, 18, 31, 33, 35, 39, 45, 51, 52, 56, 58, 59, 66 and 68. Test performed utilizing Gen-Probe Aptima assay. MARCIN Mackenzie(ASCP)Report Electronically Reviewed and Signed Out By ANH MackenzieASCP) 09/04/2021 13:47:47 Specimen(s) Received: A: SCREENING THIN [...] determined by the Surgical Pathology Department at [facility] as part of an ongoing quality assurance/r&d lab technician program and in compliance with federally mandated [...] characteristics determined by the Surgical Pathology Department [facility]. It has not been cleared or approved by the U. S. Food and Drug Administration. Pily Ingram [facility] LAB CYTOLOGY ORDERABLES Final Result PATHOLOGY [facility] from Last 3 Months or Most Recently Relevant to Health Maintenance Insurance [facility] ACCESS CHOICE Member Subscriber Plan / Payer (Ef fective 2023-Present) Name:Garry Boudreaux Relation to Subscriber:Spouse Name:KAJAL BOUDREAUX Date of :1983 Payer ID:[id number] (NAIC) Type: LILO Address: [facility] [id number] [place] [address] [facility] Hired [facility] [place] [address] Care Teams Order Desk Clerk Relationship Specialty Start Date End Date Jesus Thornton MD [address] [address] PCP - General 06/22/16 Glenn Bailey MD [address] [place] [address] Consulting Physician Rheumatology 08/28/23 Shar Emerson MD [address] [place] [address] Referring Physician Plastic Surgery 10/07/24
--- OUTSIDE RECORDS SUMMARY | 2024-10-15 00:09 | XMS_ITS | Encounter Summary ---
Author Organization [facility] Facility Care Team Providers Care Senior Quality Engineer Name Role Phone Jesus Thornton MD Primary Care Provider [phone] Jesus Thornton MD Primary Care Provider [phone] Henna Gomez MD Unavailable Glenn Bailey MD Unavailable [phone] Shar Emerson MD Unavailable [phone] Encounter Details Date Type Department Care Team (Latest Contact Info) Description 08/09/2015 Orders Only [facility] CLINCONV ProviderDebbie MD [address] [place] [address] Social History Tobacco Use Types Packs/Day Years Used Date Smoking Tobacco: Never Assessed Alcohol Use Standard Drinks/Week Comments No 0 (1 standard drink = 0.6 oz pur e alcohol) Comments Unknown Sex and Gender Information Value Date Recorded Sex Assigned at Not on file Legal Sex Female 1:45 AM HOSPITAL ACCOUNT MANAGER Gender Identity Not on file Sexual Orientation Not on file documented as of this encounter Plan of Treatment Not on file documented as of this encounter Procedures Procedure Name Priority Date/Time Associated Diagnosis Comments SCAN - LABS 11/01/2015 12:00 AM CDT documented in this encounter Results * SCAN - LABS (11/01/2015 12:00 AM CDT) Narrative 11/01/2015 12:00 AM CDT Ordered by an unspecified provider. us Historical Provider Final Res ult documented in this encounter Visit Diagnoses Not on filedocumented in this encounter Care Teams Senior Quality Engineer Relationship Specialty Start Date End Date Jesus Thornton MD [address] [facility] [address] [place] [address] PCP - General 06/22/16 Jesus Thornton MD [address] [facility] [address] [place] [address] PCP - General 01/17/15 06/21/16 [place] [address] [facility] [address] [place] [address] Rheumatology 12/25/16 06/03/23 Glenn Bailey MD [address] [place] [address] Consulting Physician Rheumatology 08/28/23 Shar Emerson MD [address] [place] [address] Referring Physician Plastic Surgery 10/07/24 documented as of this encounter
--- OUTSIDE RECORDS SUMMARY | 2024-10-15 00:09 | XMS_ITS | Encounter Summary ---
Author Organization [facility] Healthcare Address [address] [place] [address] Care Team Providers Care Telecommunications Field Technician Name Role Phone Jesus Thornton MD Primary Care Provider [phone] Glenn Bailey MD Unavailable [phone] Shar Emerson MD Unavailable [phone] Encounter Details Date Type Department Care Team (Late st Contact Info) Description 10/03/2023 Orders Only [facility] Information Management [address] [place] [address] Scanning, Provider Social History Tobacco Use Types Packs/Day Years Used Date Smoking Tobacco: Former Cigarettes Smokeless Tobacco: Never Alcohol Use Standard Drinks/Week Comments Yes 0 (1 standard drink = 0.6 oz pur e alcohol) Comments No Sex and Gender Information Value Date Recorded Sex Assigned at Not on file 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 Gender Identity Not on file Sexual Orientation Not on file documented as of this encounter Plan of Treatment Not on file documented as of this encounter Procedures Procedure Name Priority Date/Time Associated Diagnosis Comments SCAN - LABS 10/03/2023 documented in this encounter Results * SCAN - LABS (10/03/2023) us Provider Scanning Final Result documented in this encounter Visit Diagnoses Not on filedocumented in this encounter Care Teams Telecommunications Field Technician Relationship Specialty Start Date End Date Jesus Thornton MD [address] [address] PCP - General 06/22/16 Glenn Bailey MD [address] [place] [address] Consulting Physician Rheumatology 08/28/23 Shar Emerson MD [address] [place] [address] Referring Physician Plastic Surgery 10/07/24 documented as of this encounter
--- OUTSIDE RECORDS SUMMARY | 2024-10-15 00:09 | XMS_ITS | Encounter Summary ---
Author Organization [facility] Facility Care Team Providers Care Supervisor Machine Workers Name Role Phone Jesus Thornton MD Primary Care Provider [phone] Jesus Thornton MD Primary Care Provider [phone] Henna Gomez MD Unavailable Glenn Bailey MD Unavailable [phone] Shar Emerson MD Unavailable [phone] Encounter Details Date Type Department Care Team (Latest Contact Info) Description 02/09/2016 Orders Only [facility] CLINCONV ProviderDebbie MD [address] [place] [address] Social History Tobacco Use Types Packs/Day Years Used Date Smoking Tobacco: Never Assessed Alcohol Use Standard Drinks/Week Comments No 0 (1 standard drink = 0.6 oz pur e alcohol) Comments Unknown Sex and Gender Information Value Date Recorded Sex Assigned at Not on file 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 us Historical Provider Final Res ult documented in this encounter Visit Diagnoses Not on filedocumented in this encounter Care Teams Supervisor Machine Workers Relationship Specialty Start Date End Date Jesus Thornton MD [address] [facility] [address] [place] [address] PCP - General 06/22/16 Jesus Thornton MD [address] [facility] [address] [place] [address] PCP - General 01/17/15 06/21/16 [place] [address] [facility] [address] [place] [address] Rheumatology 12/25/16 06/03/23 Glenn Bailey MD [address] [place] [address] Consulting Physician Rheumatology 08/28/23 Shar Emerson MD [address] [place] [address] Referring Physician Plastic Surgery 10/07/24 documented as of this encounter
--- OUTSIDE RECORDS SUMMARY | 2024-10-15 00:09 | XMS_ITS | Clinical Summary ---
Author Organization [facility] Address [address] [place] [address] Care Team Providers Care Mercerizer Machine Operator Name Role Phone Jesus Thornton MD Primary Care Provider [phone] Encounters Date Type Department Care Team Description 09/22/2024 11:00 AM CDT - 09/22/2024 11:59 PM CDT Hospital Encounter [facility] Imaging Center Mammography [address] [place] [address] Marylin Martines, Thalia Poole MD Discharge Disposition: Home or Self Care (Routine Discharge) 09/22/2024 Travel from Last 3 Months Social History Tobacco Use Types Packs/Day Years Used Date Smoking Tobacco: Never Assessed Comments No Sex and Gender Information Value Date Recorded Sex Assigned at Female 09/22/2024 11:01 AM CDT Legal Sex Female 4:15 PM CDT Gender Identity Not on file Sexual Orientation Not on file Plan of Treatment Health Maintenance Due Date Last Done Comments Annual Physical 10/29/1983 DTaP, Tdap and Td Vaccines (1 - Tdap) 10/29/1999 Hepatitis B Vaccines (1 of 3 - 19+ 3-dose series) 10/29/1999 HPV Vaccines (1 - 3-dose SCDM series) 10/29/2007 Cervical Cancer Screening Pap with HPV Testing (Age 30 to 64) Every 5 Years 2010 COVID-19 Vaccine ( season) 2023 01/24/2021, 05/04/2020, 04/07/2020 Cervical Cancer Screening Pap Smear (Age 30 to 64) Every 3 Years 08/30/2024 08/30/2021 Cervical Cancer Screening with HPV 08/30/2024 Mammogram Screening 09/22/2026 09/22/2024, 01/03/2024, 10/09/2022, Additional history exists Hepatitis C Completed 05/29/2023, 05/29/2023 Meningococcal B Vaccine Aged Out No l onger eligible based on patient's age to complete this topic Meningococcal Vaccine Aged Out No jorge alberto rocio eligible based on patient's age to complete this topic Pneumococcal Vaccine: Pediatrics (0 to 5 Years) and At-Risk Patients (6 to 49 Years) Aged Out No longer eligible based on patient's age to complete this topic RSV Immunizations Under 20 Months Aged Out No longer eligible based on patient's age to complete this topic Procedures Procedure Name Priority Date/Time Associated Diagnosis Comments MG SCREENING W MISAEL ESPINOZA DIGI Routine 09/22/2024 11:13 AM CDT Encounter for screening mammogram for malignant neoplasm of breast from Last 3 Months Results * MG SCREENING W MISAEL ESPINOZA DIGI (09/22/2024 11:13 AM CDT) Anatomical Region Laterality Modality Breast Bilateral Mammography 09/22/2024 3:01 PM CDT Impressions 09/22/2024 3:06 PM CDT IMPRESSION: No suspicious mammographic findings. Recommendation: 1. Routine Screening, Bilateral Assessment: ACR BI-RADS 1 - NEGATIVE Ordered By: THALIA RAMÍREZ Interpreted By: David Rollins MD, 09/22/2024 3:01 PM Narrative 09/22/2024 3:06 PM CDT [facility] Imaging Center [address] [address] Examination: Screening bilateral mammogram Exam Date: 09/22/2024 11:03 AM Clinical history: Routine screening. Comparison: 01/03/2024, 10/09/2022 Technique: Digital screening mammography of both breasts was performed. Breast tomosynthesis acquisitions were obtained and reviewed. This study was read with the assistance of a computer-aided detection system. Tissue density: There are scattered areas of fibroglandular density. Findings: No suspicious masses, malignant appearing calcifications, skin thickening or other abnormalities are present. No significant change from the prior exam. Thalia Ramírez MD MAMMO Final Result from Last 3 Months Insurance Care Teams Mercerizer Machine Operator Relationship Specialty Start Date End Date Jesus Thornton MD [address] [facility] [address] [place] [address] PCP - General 04/06/15
--- OUTSIDE RECORDS SUMMARY | 2024-10-15 00:09 | XMS_ITS | Encounter Summary ---
Author Organization [facility] Facility Care Team Providers Care Hydrocrane Operator Name Role Phone Jesus Thornton MD Primary Care Provider [phone] Jesus Thornton MD Primary Care Provider [phone] Henna Gomez MD Unavailable Glenn Bailey MD Unavailable [phone] Shar Emerson MD Unavailable [phone] Encounter Details Date Type Department Care Team (Latest Contact Info) Description 10/21/2015 Orders Only [facility] CLINCONV ProviderDebbie MD [address] [place] [address] Social History Tobacco Use Types Packs/Day Years Used Date Smoking Tobacco: Never Assessed Alcohol Use Standard Drinks/Week Comments No 0 (1 standard drink = 0.6 oz pur e alcohol) Comments Unknown Sex and Gender Information Value Date Recorded Sex Assigned at Not on file 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 Gender Identity Not on file Sexual Orientation [...] on filedocumented in this encounter Care Teams Hydrocrane Operator Relationship Specialty Start Date End Date Jesus Thornton MD [address] [facility] [address] [place] [address] PCP - General 06/22/16 Jesus Thornton MD [address] [facility] [address] [place] [address] PCP - General 01/17/15 06/21/16 [place] [address] [facility] [address] [place] [address] Rheumatology 12/25/16 06/03/23 Glenn aBiley MD [address] [place] [address] Consulting Physician Rheumatology 08/28/23 Shar Emerson MD [address] [place] [address] Referring Physician Plastic Surgery 10/07/24 documented as of this encounter
--- OUTSIDE RECORDS SUMMARY | 2024-10-15 00:09 | XMS_ITS | Encounter Summary ---
Author Organization [facility] Facility Care Team Providers Care Copy Preparer Name Role Phone Jesus Thornton MD Primary Care Provider [phone] Jesus Thornton MD Primary Care Provider [phone] Henna Gomez MD Unavailable Glenn Bailey MD Unavailable [phone] Shar Emerson MD Unavailable [phone] Encounter Details Date Type Department Care Team (Latest Contact Info) Description 08/25/2015 Orders Only [facility] CLINCONV ProviderDebbie MD [address] [place] [address] Social History Tobacco Use Types Packs/Day Years Used Date Smoking Tobacco: Never Assessed Alcohol Use Standard Drinks/Week Comments No 0 (1 standard drink = 0.6 oz pur e alcohol) Comments Unknown Sex and Gender Information Value Date Recorded Sex Assigned at Not on file 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 us Historical Provider Final Res ult documented in this encounter Visit Diagnoses Not on filedocumented in this encounter Care Teams Copy Preparer Relationship Specialty Start Date End Date Jesus Thornton MD [address] [facility] [address] [place] [address] PCP - General 06/22/16 Jesus Thornton MD [address] [facility] [address] [place] [address] PCP - General 01/17/15 06/21/16 [place] [address] [facility] [address] [place] [address] Rheumatology 12/25/16 06/03/23 Glenn Bailey MD [address] [place] [address] Consulting Physician Rheumatology 08/28/23 Shar Emerson MD [address] [place] [address] Referring Physician Plastic Surgery 10/07/24 documented as of this encounter
--- OUTSIDE RECORDS SUMMARY | 2024-10-15 00:09 | XMS_ITS | Clinical Summary ---
Author Organization [facility] Address [address] [place] [address] Care Team Providers Care Flagger Name Role Phone Jesus Thornton MD Primary Care Provider [phone] Source Comments [facility],non-[facility] Affiliates and Associated Physician Practices is amultiple site organization consisting of ambulatory clinics and hospital sitesin [place], [place], [place] and [place]. This disclosure is being madepursuant to the Care Everywhere program and may not contain all information available regarding this patient. Last updated 17.[facility] Social History Tobacco Use Types Packs/Day Years Used Date Smoking Tobacco: Never Assessed Comments Unknown Sex and Gender Information Value Date Recorded Sex Assigned at Not on file Legal Sex Female 10:55 AM CDT Gender Identity Not on file Sexual Orientation Not on file Plan of Treatment Health Maintenance Due Date Last Done Comments LIPID TESTING 1980 MAMMOGRAM 1980 HIV SCREENING 10/29/1995 HEPATITIS C SCREENING 10/24/1998 DTAP/TDAP/TD VACCINES (1 - Tdap) 10/29/1999 HEPATITIS B VACCINE (1 of 3 - 19+ 3-dose series) 10/29/1999 HPV VACCINE (1 - 3-dose SCDM series) 10/29/2007 COVID-19 VACCINE ( - 2023-2 5 season) 2023 DEPRESSION SCREENING 03/25/2024 INFLUENZA VACCINE (#1) 2024 ZOSTER VACCINE (1 of 2) 2030 HIB VACCINE Aged Out No longer eligi ble based on patient's age to complete this topic MENINGOCOCCAL (Group B) VACC INE SHARED DECISION-MAKING Aged Out No longer eligibl e based on patient's age to complete this topic MENINGOCOCCAL GROUPS A/C/Y/W VACCINE Aged Out No longer eligible b ased on patient's age to complete this topic PNEUMOCOCCAL VACCINE Aged Out No long er eligible based on patient's age to complete this topic Insurance [facility] Care Teams Flagger Relationship Specialty Start Date End Date Jesus Thornton MD PCP - General Family Medicine 01/03/15
--- NOTE | 2024-10-15 06:39 | P.OP_ITS ---
Procedure Note - Detailed Date of Procedure 10/15/24 Pre-op Diagnosis breast ptosis Post-op Diagnosis Same Procedure Performed Bilateral mastopexy with Galaflex Surgeon Shar Emerson MD Anesthesia General Findings Inverted t Superior medial pedicle Lipoaspirate: 400 cc Description of Procedure She is here today for bilateral breast mastopexy. Previously and again today the risks, benefits, alternatives were discussed in extensive detail. I wanted her to be very realistic about the risks involved as well as expectations. We discussed aftercare and what to monitor for. Made sure answered all of her questions to her satisfaction today and consent was obtained. Marked in the preoperative holding area with her verification. The patient was taken to the operating room placed supine on the operating table. Anesthesia was provided by anesthesiology. A surgical time-out was taken. She was prepped and draped in a standard sterile fashion. Eleven blade was utilized to make a stab incision and infiltrated with low volume tumescent solution. The breast was tailor tacked into place. I tailor tacked the breast into position. Placed her in a sitting position. Verified the nipple-areolar location based on preoperative planning as well as intraoperative observations and measurements in full agreement. She was placed supine. I de-epithelialized the pedicle. I then de-epithelialized the inferior breast tissue to create an autoaugmentation flap based on intercostal artificial breeding technician. I elevated medial and lateral tissue flaps as well for planned closure. The autoaugmentation flap was sutured to the chest wall with 2-0 PDS. Lateral suction lipectomy was completed supine and sitting with a 4mm paulette cannula. Left breast I resected a portion of the autoaugmentation flap for symmetry and then suction lipectomy completed to maximize symmetry. Galaflex was soaking in a betadine solution on the back table. It was trimmed and sutured into place with 2-0 Vicryl. I closed along the IMF with 2-0 Stratafix. Along the vertical with 2-0 PDS. I closed around the areola with 3-0 stratafix. 3-0 Monocryl along the vertical. 3-0 Stratafix along the IMF. I finally closed everything with running subcuticular 4-0 Monocryl and tissue glue. Brijjits were utilized for the vertical incision. Fluffs and surgical bra were placed. Estimated Blood Loss 30 Drains No Packing No Pathology None sent Complications No immediate complications Condition Stable Disposition PACU
[2024-10-15] MEDS: LACTATED RINGERS 1,000 ML 30 ML IV CONT ×2 (10:34→15:15)
[2024-10-15] MEDS: TRANEXAMIC ACID 1,000MG/ISO100 1,000 MG/100 ML BAG 200 MG IVPB (10:38)
--- NOTE | 2024-10-15 12:04 | WPDHPUPDATE1 ---
History and Physical Update Update Date/Time: 10/15/24 12:04 History and Physical has been reviewed, including an updated exam of the patient. There are NO changes in the patient's condition. Risks, benefits, and alternatives have been discussed and questions answered. Patient agrees to proceed with procedure.
--- NOTE | 2024-10-15 12:16 | P.PNAN_ITS ---
Anes - Initial Pre Proc Eval Procedure: Operation Date: 10/15/24 11:30 Proposed Procedures p Bilateral Breast Mastopexy with Galaflex - Shar Emerson MD Date/Time: 10/15/24 12:16 Surgeon: Shar Emerson MD Pre Op Diagnosis: breast ptosis Patient Data Age: 43 Gender: F Height: 1.6 m Weight: 77.7 kg Last Vital Signs Temp 99.3 F 10/15/24 10:00 Pulse 65 10/15/24 10:00 Resp 16 10/15/24 10:00 BP 95/65 L 10/15/24 10:00 Pulse Ox 99 10/15/24 10:00 O2 Del Method Room Air 10/15/24 10:00 Allergies Allergy/AdvReac Type Severity Reaction Status Date / Time No Known Allergies Allergy Verified 10/15/24 10:26 Home Medications ?Medication ?Instructions ?Recorded ?Confirmed ?Type adalimumab-adbm 40 mg/0.4 mL 40 mg subcut .Bi weekly 10/09/24 10/09/24 History subcutaneous pen kit enoxaparin 40 mg/0.4 mL 40 mg subcut HS 10/09/24 10/15/24 History subcutaneous syringe (Lovenox) levothyroxine 50 mcg tablet 50 mcg PO DAILY 10/09/24 10/15/24 History montelukast 10 mg tablet 10 mg PO HS 10/09/24 10/15/24 History sulfasalazine 500 mg tablet 1,000 mg PO BID 10/09/24 10/15/24 History (Azulfidine) Laboratory Tests 10/15/24 09:57 Cotinine Negative Patient hx anesthesia problems: none Family hx anesthesia problems: none Results Review: All pre-operative results and documents have been reviewed as part of the pre- operative evaluation. [facility] Social History Social History Smoking packs per day: 1 Smoking cigarettes per day: 20.0 Years smoked: 10 Smoking pack-years: 10.00 Smoking status: Former smoker Smoking end date: 10/09/10 Living arrangements: with family Spiritual care concerns: No Anes - Eval Final PreProcedure Day of Procedure 10/15/24 12:16 Patient weight: overweight Lungs: normal air movement Airway: Mallampati scale class II Neurological: alert and oriented Last oral intake: >/= 8 hours ASA classification: II Emergent: no Anesthetic plan: proceed Anesthesia type and monitoring: general LMA and standard monitoring Results Review: All pre-operative results and documents have been reviewed as part of the pre- operative evaluation. BMI 30, hypothyroidism, asthma, ex smoker. Pt can walk 1-2 fos, no cp or sob. Informed Consent: The patient's anesthetic plan and its attendant risks and benefits were discussed with the patient/family/POA. Questions were solicited and answers provided to the satisfaction of the patient/family/POA.
[2024-10-15] MEDS: NACL 0.9% IRRIG POUR BOTTLE 900 ML, GENTAMICIN SULFATE INJ 160 MG, ceFAZolin 2 GM, POVI... IRRIGATION (12:26)
[2024-10-15] MEDS: ceFAZolin 2 GM in SODIUM CHLORIDE 0.9% IV 50 ML 100 ML IVPB (12:26)
[2024-10-15] MEDS: LACTATED RINGERS IRRIG 1,000 ML, LIDOCAINE 1% LOCAL INJ 50 ML, EPINEPHrine HCL INJ 1 MG... INFILTRATE (12:26)
[2024-10-15] MEDS: fentaNYL CITRATE INJ (*CRX) 100 MCG/2 ML VIAL 25 MCG IV PUSH ×4 (15:32→15:55)
[2024-10-15] MEDS: ONDANSETRON INJ 4 MG/2 ML VIAL IV PUSH (16:16)
[2024-10-15] MEDS: oxyCODONE HCL (*CRX) 5 MG TAB IR PO (17:07)
== END 2024-10-15 18:10 | disposition home or self-care (01) ==
PROVIDERS: PCP Family Medicine; Visit Provider Surgery Plastic and Reconstructive Surgery
PROC: (CPT 19316; principal; 2024-10-15 11:30)
DX: Z41.1 Encounter for cosmetic surgery (principal); N64.81 Ptosis of breast; E03.9 Hypothyroidism, unspecified; J45.909 Unspecified asthma, uncomplicated; D89.89 Other specified disorders involving the immune mechanism, not elsewhere classified; M19.90 Unspecified osteoarthritis, unspecified site; M06.9 Rheumatoid arthritis, unspecified; Z79.620 Long term (current) use of immunosuppressive biologic; Z87.891 Personal history of nicotine dependence
CPT/HCPCS: 19316; 15777 ×2; 80307; J0690; A9270; J0166; J1100; J1171; J1200; J1580; J2003; J2250; J2405; J2704; J3010; J7120